=== PATIENT | female | born 1955 | race Caucasian/White ===

== ENCOUNTER → 2016-10-14 | Outpatient (CLI) | payer BC ==
--- NOTE | 2016-10-14 15:20 | CT ---
EXAMINATION TYPE: CT soft tissue neck w con DATE OF EXAM: 10/14/2016 1:56 PM COMPARISON: 02/25/2016 HISTORY: 61 year-old female right sided neck nodule TECHNIQUE: Contiguous axial scanning of the neck performed with IV Contrast, patient injected with 10 0 ml mL of Omnipaque 300. Coronal/sagittal reconstructions performed. CT DLP: 676 mGycm Automated exposure control for dose reduction was used. FINDINGS: Visualized intracranial structures show partially empty sella. Orbits and globes, paranasal sinuses, and mastoid air cells appear clear. Rightward nasal septal deviation. The nasopharynx is clear. The oropharynx shows mild bilateral palatine tonsillar hypertrophy similar to prior exam. The glottic and subglottic airway as well as of the tracheal column and visualized upp er lungs are clear. The epiglottis and prevertebral soft tissues are within normal limits. Thyroid and submandibular glands as well as the parotid glands appear clear. Nonenlarged upper cervical lymph nodes measure up to 7 mm. No cervical lymphadenopathy, suspicious ma ss, or abnormal fluid collection is identified. There is a palpable marker present along the right lateral mid neck. Underlying this is an asymmetrically enlarged external jugular vein. Some focal circumferential bulgi ng here is unchanged from 02/25/2016 and could represent a mild localized venous aneurysm or hypertrop hied valves. Maximal caliber is 1.2 cm. Bones: Degenerative disc disease C6/C7. IMPRESSION: 1. PALPABLE MARKER ALONG THE RIGHT LATERAL MID NECK AGAIN SHOWS A DILATED RIGHT EXTERNAL JUGULAR VEIN . IN THIS REGION, THERE IS FOCAL CIRCUMFERENTIAL BULGING WITH A CALIBER UP TO 1.2 CM, UNCHANGED FROM 02/25/2016. A MILD VENOUS ANEURYSM OR HYPERTROPHIED BOWELS ARE CONSIDERED. CONSIDER TARGETED ULTRASOUN D TO ASSESS FOR PROMINENT VALVES. 2. OTHERWISE, NO SUSPICIOUS NECK MASS.
== END | disposition home or self-care (01) ==
LOC: RADCTMAIN 13:18
PROVIDERS: ATTEND Internal Medicine
DX: R22.1 Localized swelling, mass and lump, neck (principal)
CPT/HCPCS: 70491; Q9967

== ENCOUNTER → 2017-03-16 | Outpatient (CLI) | payer BC ==
--- NOTE | 2017-03-16 11:39 | MM ---
Reason for exam: screening (asymptomatic). Last mammogram was performed 1 year ago. History: Patient is postmenopausal. Benign left mammotome panel of the left breast, December 03, 2011. Took estrogen for 10 years beginning at age 44. Physical Findings: A clinical breast exam by your physician is recommended on an annual basis and results should be correlated with mammographic findings. MG Screening Mammo w CAD Bilateral CC and MLO view(s) were taken. Prior study comparison: March 14, 2016, bilateral MG screening mammo w CAD. March 12, 2015, bilateral MG screening mammo w CAD. December 26, 2013, bilateral MG screening mammo w CAD. There are scattered fibroglandular densities. Previous mammotome biopsy in the left breast. Asymmetric breast tissue in the left upper outer quadrant, stable. There is no discrete abnormality. ASSESSMENT: Negative, BI-RAD 1 RECOMMENDATION: Routine screening mammogram of both breasts in 1 year.
== END | disposition home or self-care (01) ==
LOC: RADMAMWWP 07:40
PROVIDERS: ATTEND Internal Medicine
DX: Z12.31 Encounter for screening mammogram for malignant neoplasm of breast (principal)

== ENCOUNTER → 2017-04-25 | Outpatient (CLI) | payer BC ==
--- NOTE | 2017-04-25 11:33 | XR ---
EXAMINATION TYPE: XR chest 2V DATE OF EXAM: 04/25/2017 COMPARISON: Prior chest x-ray 03/19/2016 HISTORY: Pneumonia, retrocardiac infiltrate TECHNIQUE: Frontal and lateral views of the chest are obtained. FINDINGS: There is no focal air space opacity, pleural effusion, or pneumothorax seen. The cardiac silhouette size is within normal limits. The aorta is dense. The osseous structures are intact. IMPRESSION: No acute cardiopulmonary process.
== END | disposition home or self-care (01) ==
LOC: LABWHC1 09:28
PROVIDERS: ATTEND Internal Medicine
DX: J18.9 Pneumonia, unspecified organism (principal)
CPT/HCPCS: 71020

== ENCOUNTER → 2018-05-10 | Outpatient (CLI) | payer BC ==
--- NOTE | 2018-05-11 14:32 | MM ---
Reason for exam: screening (asymptomatic). Last mammogram was performed 1 year and 2 months ago. History: Patient is postmenopausal. Benign left mammotome panel of the left breast, December 03, 2011. Took estrogen for 10 years beginning at age 44. Physical Findings: A clinical breast exam by your physician is recommended on an annual basis and results should be correlated with mammographic findings. MG 3D Screening Mammo W/Cad Bilateral CC and MLO view(s) were taken. Prior study comparison: March 16, 2017, bilateral MG screening mammo w CAD. March 14, 2016, bilateral MG screening mammo w CAD. The breast tissue is heterogeneously dense. This may lower the sensitivity of mammography. There is no discrete abnormality. No significant changes when compared with prior studies. ASSESSMENT: Negative, BI-RAD 1 RECOMMENDATION: Routine screening mammogram of both breasts in 1 year.
== END ==
LOC: RADMAMWWP 11:11
PROVIDERS: ATTEND Internal Medicine
DX: Z12.31 Encounter for screening mammogram for malignant neoplasm of breast (principal)
CPT/HCPCS: 77063; 77067

== ENCOUNTER → 2019-07-07 | Outpatient (CLI) | payer BC, OTHER ==
--- NOTE | 2019-07-08 11:18 | MM ---
Reason for exam: screening (asymptomatic). Last mammogram was performed 1 year and 2 months ago. History: Patient is postmenopausal. Benign left mammotome panel of the left breast, December 03, 2011. Took estrogen for 10 years beginning at age 44. Physical Findings: A clinical breast exam by your physician is recommended on an annual basis and results should be correlated with mammographic findings. MG 3D Screening Mammo W/Cad Bilateral CC and MLO view(s) were taken. Prior study comparison: May 10, 2018, bilateral MG 3d screening mammo w/cad. March 16, 2017, bilateral MG screening mammo w CAD. The breast tissue is heterogeneously dense. This may lower the sensitivity of mammography. There are benign appearing round calcifications bilaterally. Previous mammotome biopsy in the left breast. Asymmetric breast tissue left central aspect. There is no discrete abnormality. ASSESSMENT: Benign, BI-RAD 2 RECOMMENDATION: Routine screening mammogram of both breasts in 1 year.
== END | disposition home or self-care (01) ==
LOC: RADMAMWWP 07:11
PROVIDERS: ATTEND Internal Medicine
DX: Z12.31 Encounter for screening mammogram for malignant neoplasm of breast (principal)
CPT/HCPCS: 77063; 77067

== ENCOUNTER → 2020-07-20 | Outpatient (CLI) | payer MEDICARE ==
--- NOTE | 2020-07-23 10:34 | MM ---
Reason for exam: screening (asymptomatic). Last mammogram was performed 1 year ago. History: Patient is postmenopausal. Benign left mammotome panel of the left breast, December 03, 2011. Took hormonal contraceptives for 5 years. Took estrogen for 10 years beginning at age 44. Physical Findings: A clinical breast exam by your physician is recommended on an annual basis and results should be correlated with mammographic findings. MG 3D Screening Mammo W/Cad Bilateral CC and MLO view(s) were taken. Prior study comparison: July 07, 2019, bilateral MG 3d screening mammo w/cad. May 10, 2018, bilateral MG 3d screening mammo w/cad. The breast tissue is heterogeneously dense. This may lower the sensitivity of mammography. There is no discrete abnormality. No significant changes when compared with prior studies. ASSESSMENT: Negative, BI-RAD 1 RECOMMENDATION: Routine screening mammogram of both breasts in 1 year.
== END | disposition home or self-care (01) ==
LOC: RADMAMWWP 09:37
PROVIDERS: ATTEND Internal Medicine
DX: Z12.31 Encounter for screening mammogram for malignant neoplasm of breast (principal)
CPT/HCPCS: 77063; 77067

== ENCOUNTER → 2021-07-22 | Outpatient (CLI) | payer MEDICARE ==
--- NOTE | 2021-07-23 11:30 | MM ---
Reason for exam: screening (asymptomatic). Last mammogram was performed 1 year ago. History: Patient is postmenopausal. Benign left mammotome panel of the left breast, December 03, 2011. Took hormonal contraceptives for 5 years. Took estrogen for 10 years beginning at age 44. Physical Findings: A clinical breast exam by your physician is recommended on an annual basis and results should be correlated with mammographic findings. MG 3D Screening Mammo W/Cad Bilateral CC and MLO view(s) were taken. XCCL view(s) were taken of the right breast. Prior study comparison: July 20, 2020, bilateral MG 3d screening mammo w/cad. July 07, 2019, bilateral MG 3d screening mammo w/cad. There are scattered fibroglandular densities. No significant changes when compared with prior studies. ASSESSMENT: Benign, BI-RAD 2 RECOMMENDATION: Routine screening mammogram of both breasts in 1 year.
== END | disposition home or self-care (01) ==
LOC: RADMAMWWP 15:31
PROVIDERS: ATTEND Internal Medicine
DX: Z12.31 Encounter for screening mammogram for malignant neoplasm of breast (principal)
CPT/HCPCS: 77063; 77067

== ENCOUNTER → 2022-04-25 | Outpatient (CLI) | payer MEDICARE ==
--- NOTE | 2022-04-25 13:32 | XR ---
EXAMINATION TYPE: XR cervical spine comp DATE OF EXAM: 04/25/2022 COMPARISON: NONE HISTORY: Pain TECHNIQUE: Four views are submitted. FINDINGS: The odontoid is intact. There are no compression deformities. The prevertebral soft tissue structur es are within normal limits. Multilevel facet arthropathy. There is degenerative change C5-6 and C6- C7. Foraminal encroachment C4-5 and C5-C6. IMPRESSION: 1. Multilevel degenerative disc disease and facet arthropathy with foraminal encroachment as discusse d above..
== END | disposition home or self-care (01) ==
LOC: RADXRMAIN 13:09
PROVIDERS: ATTEND Internal Medicine
DX: M47.812 Spondylosis without myelopathy or radiculopathy, cervical region (principal); M50.323 Other cervical disc degeneration at C6-C7 level
CPT/HCPCS: 72050

== ENCOUNTER 2022-05-01 12:24 | Emergency (ER) | payer MEDICARE ==
[2022-05-01 12:48] VITALS: RESP 18; TEMP 98.4
--- NOTE | 2022-05-01 13:44 | XR ---
EXAMINATION TYPE: XR chest 2V DATE OF EXAM: 05/01/2022 COMPARISON: 04/25/2017 TECHNIQUE: PA and lateral views submitted. HISTORY: Pain FINDINGS: The lungs are clear and there is no pneumothorax, pleural effusion, or focal pneumonia. Heart size normal with no overt failure. Biapical pleural thickening. Hypertrophic and degenerative change of th e spine. IMPRESSION: 1. No acute process.
[2022-05-01 13:53] LABS: ALT 23 U/L (4-34); AST 30 U/L (14-36); African American GFR (CKD) >90 (>60 ml/min/1.73 sqM); Albumin 4.2 g/dL (3.5-5.0); Alkaline Phosphatase 74 U/L (38-126); Anion Gap 6 mmol/L; Blood Urea Nitrogen 15 mg/dL (7-17); Calcium 9.2 mg/dL (8.4-10.2); Carbon Dioxide 31 mmol/L (22-30); Chloride 107 mmol/L (98-107); Glucose 90 mg/dL (74-99); INR 0.9 (<1.2); Magnesium 1.8 mg/dL (1.6-2.3); Non-African American GFR(CKD) 78 (>60 ml/min/1.73 sqM); Partial Thromboplastin Time 22.8 sec (22.0-30.0); Potassium 3.9 mmol/L (3.5-5.1); Sodium 144 mmol/L (137-145); Total Bilirubin 0.7 mg/dL (0.2-1.3)
[2022-05-01 13:56] LABS: Basophils # (A) 0.1 k/uL (0-0.2); Basophils % (A) 1 %; Eosinophils # (A) 0.2 k/uL (0-0.7); Eosinophils % (A) 2 %; HCT 41.3 % (34.0-46.0); HGB 13.8 gm/dL (11.4-16.0); Lymphocytes # (A) 1.7 k/uL (1.0-4.8); Lymphocytes % (A) 20 %; MCH 30.7 pg (25.0-35.0); MCHC 33.3 g/dL (31.0-37.0); MCV 92.1 fL (80.0-100.0); Mean Platelet Volume 8.4; Monocytes # (A) 0.4 k/uL (0-1.0); Monocytes % (A) 5 %; Neutrophils # (A) 5.7 k/uL (1.3-7.7); Neutrophils % (A) 68 %; Platelet Count 151 k/uL (150-450); RBC 4.49 m/uL (3.80-5.40); RDW 15.1 % (11.5-15.5); WBC 8.3 k/uL (3.8-10.6)
--- NOTE | 2022-05-01 13:58 | ED ---
Chest Pain HPI - General Chief Complaint: Chest Pain Stated Complaint: Chest pain Time Seen by Provider: 05/01/22 12:50 Source: patient, family Mode of arrival: wheelchair - History of Present Illness Initial Comments: 67-year-old female with past history of hypertension, hyperlipidemia presents to the emergency department from her doctor's office. States that one month ago mei gutiérrez was riding a lawnmower dragging something behind her using her right arm. She began having right shoulder and right-sided neck pain. She was seen her primary care office where they completed an x-ray. As of a few days ago the pain now starts radiating into the patient's anterior chest. Because of this they did recommend that she be evaluated for PE and [place]. Patient states that the pain is reproducible with movement.. No associated shortness of breath. No fevers, chills or cough. No previous history of pulmonary or cardiac issues. No lower externally swelling. Patient is an dominant. No other alleviating, Perceptin or modifying factors - Related Data Home Medications Medication Instructions Recorded Confirmed ALPRAZolam [Xanax] 0.25 mg PO TID PRN 05/01/22 05/01/22 Baclofen [Lioresal] 10 mg PO TID PRN 05/01/22 05/01/22 Bisoprolol-Hctz 10-6.25 mg [Ziac 1 tab PO DAILY 05/01/22 05/01/22 10-6.25 MG] Cholecalciferol [Vitamin D3 (125 125 mcg PO DAILY 05/01/22 05/01/22 Mcg = 5000 Iu)] Furosemide [Lasix] 20 mg PO DAILY 05/01/22 05/01/22 HYDROcodone/APAP 5-325MG [[place] 1 tab PO TID PRN 05/01/22 05/01/22 5-325] Indomethacin [Indocin] 25 mg PO TID PRN 05/01/22 05/01/22 Levothyroxine Sodium [Tirosint] 25 mcg PO DAILY 05/01/22 05/01/22 Multivitamins, Thera [Multivitamin 1 tab PO DAILY 05/01/22 05/01/22 (formulary)] Nystatin 100,000 Unit/gm Powd 1 applic TOPICAL BID PRN 05/01/22 05/01/22 [Mycostatin Powder] Nystatin 100,000Unit/gm Cream 1 applic TOPICAL BID PRN 05/01/22 05/01/22 [Mycostatin Cream] Omeprazole [PriLOSEC] 20 mg PO DAILY 05/01/22 05/01/22 Potassium Chloride ER [K-Dur 20] 20 meq PO DAILY 05/01/22 05/01/22 Simvastatin [Zocor] 10 mg PO HS 05/01/22 05/01/22 Triamcinolone 0.5% Cream [Kenalog 1 applic TOPICAL BID 05/01/22 05/01/22 0.5% Cream] allopurinoL [Zyloprim] 300 mg PO DAILY 05/01/22 05/01/22 Allergies Allergy/AdvReac Type Severity Reaction Status Date / Time No Known Allergies Allergy Verified 05/01/22 12:47 Review of Systems ROS Statement: Those systems with pertinent positive or pertinent negative responses have been documented in the HPI. ROS Other: All systems not noted in ROS Statement are negative. EKG Findings - EKG Comments: EKG Findings:: EKG demonstrates sinus bradycardia with rate of 58. WA interval 183. QRS 90. QTC of 432. No acute ST segment elevations or depressions concerning for ischemic changes Past Medical History Past Medical History: Hyperlipidemia, Hypertension History of Any Multi-Drug Resistant Organisms: MRSA Date of last positivie culture/infection: 08/22/20 MDRO Source:: Vaginal Past Surgical History: Hysterectomy, Orthopedic Surgery Past Psychological History: No Psychological Hx Reported Smoking Status: Current every day smoker Past Alcohol Use History: None Reported Past Drug Use History: None Reported General Exam General appearance: alert, in no apparent distress Head exam: Present: atraumatic, normocephalic, normal inspection Eye exam: Present: normal appearance, PERRL, EOMI. Absent: scleral icterus, conjunctival injection, periorbital swelling ENT exam: Present: normal exam, mucous membranes moist Neck exam: Present: tenderness (to palpation of right trapezius muscle, equal printed circuit board preassembler strength.). Absent: meningismus, lymphadenopathy Respiratory exam: Present: normal lung sounds bilaterally. Absent: respiratory distress, wheezes, rales, rhonchi, stridor Cardiovascular Exam: Present: regular rate, normal rhythm, normal heart sounds. Absent: systolic murmur, diastolic murmur, rubs, gallop, clicks GI/Abdominal exam: Present: soft, normal bowel sounds. Absent: distended, tenderness, guarding, rebound, rigid Extremities exam: Present: normal inspection, full ROM, normal capillary refill. Absent: tenderness, pedal edema, joint swelling, calf tenderness Back exam: Present: normal inspection Neurological exam: Present: alert, oriented X3, CN II-XII intact Psychiatric exam: Present: normal affect, normal mood Skin exam: Present: warm, dry, intact, normal color. Absent: rash Course Vital Signs 05/01/22 05/01/22 05/01/22 12:42 14:15 16:02 Temperature 98.4 F Pulse Rate 64 62 60 Respiratory 18 18 18 Rate Blood Pressure 138/77 130/81 132/81 O2 Sat by Pulse 98 96 96 Oximetry Chest Pain MDM - MDM Upon arrival patient's placed into hallway 10. Through history and physical exam is performed. IV access established laboratory studies were conducted. D- dimer is elevated at 0.77. Patient sent for a CT of her chest as well as a CT of her cervical spine. CT negative for DVT. Cervical spine demonstrates mild disc disease at C6 to C7. These results are discussed with the patient. She is satisfied with her evaluation. She will follow-up with for further treatment and management of her pain. Also recommended follow-up with the orthopedic office for her continued right shoulder pain. Instructed to return for any new or worsening symptoms. Patient discharged home in stable condition Disposition Clinical Impression: Shoulder pain Disposition: HOME SELF-CARE Condition: Stable Instructions (If sedation given, give patient instructions): Chest Pain (ED) Additional Instructions: Please call and make an appointment with Dr. Archer in 1 week. You may need further imaging of your shoulder. Return to the emergency room for any new or worsening symptoms Is patient prescribed a controlled substance at d/c from ED?: No Referrals: Tasneem Morley MD [Primary Care Provider] - 1-2 days Aristides Montiel DO [Doctor of Osteopathic Medicine] - 1-2 days Time of Disposition: 15:49
--- NOTE | 2022-05-01 15:23 | CT ---
EXAMINATION TYPE: CT chest angio for PE CT DLP: 794.9 mGycm, Automated exposure control for dose reduction was used. DATE OF EXAM: 05/01/2022 3:15 PM COMPARISON: Chest radiograph from same day. CLINICAL INDICATION:Female, 67 years old with history of elevated d-dimer; Elevated d-dimer, chest pa in TECHNIQUE/CONTRAST: CTA scan of the thorax is performed with IV Contrast, patient injected with 100 mL of Isovue 370, pul monary embolism protocol. MIP images are created and reviewed. FINDINGS: Pulmonary Artery: There is no evidence for a filling defect within the pulmonary vasculature to sugge st acute pulmonary embolism. The pulmonary artery is of normal size. Lungs/Pleura: No evidence of focal consolidation, pleural effusion or pneumothorax. Left lower lobe l inear scarring or atelectasis. Airway: Large airways are patent. Heart: Mild prominent size. No pericardial effusion. Mild coronary arterial calcifications. Vasculature: No evidence of aortic aneurysm. Mediastinum: No gross evidence of adenopathy. Musculoskeletal: No acute osseous abnormalities. No aggressive osseous lesion. Mild multilevel degene rative disc disease. Soft Tissues: Unremarkable. Lower neck: No significant findings. Upper Abdomen: Small hiatal hernia.. IMPRESSION: No evidence of pulmonary embolism or acute thoracic process.
--- NOTE | 2022-05-01 15:27 | CT ---
EXAMINATION TYPE: CT cervical spine wo con CT DLP: 836.8 mGycm, Automated exposure control for dose reduction was used. DATE OF EXAM: 05/01/2022 3:17 PM COMPARISON: CT 8 chest 05/01/2022, cervical spine radiograph 04/25/2022, CT soft tissue neck 10/14/2016 .. CLINICAL INDICATION:Female, 67 years old with history of pain; PHH, Neck, RT shoulder pain TECHNIQUE: Axial CT images from the skull base to the inferior aspect of T2 we obtained without intra venous contrast. Coronal and sagittal reformatted images were also reviewed. FINDINGS: Fracture: None. Osseous structures: Degenerative disc disease at C6-C7 with disc space narrowing, endplate sclerosis, and anterior osteophyte formation. Multilevel facet arthropathy. Vertebral alignment: Within normal limits. Spinal canal/Neural Foramina: Disc osteophyte complexes at C6-C7 with at least mild spinal canal sten osis. Facet joint uncovertebral joint arthropathy scattered throughout the cervical spine with varyin g degrees of neural foraminal stenosis. Neck soft tissues: Prevertebral soft tissues are within normal limits. Other: The airway is patent. The lung apices are clear. IMPRESSION: 1. No evidence of cervical spine fracture. 2. Mild degenerative disc disease at C6-C7.
[2022-05-01 16:03] VITALS: BP 132/81; PULSE 60
== END 2022-05-01 16:03 | disposition home or self-care (01) ==
LOC: EC 12:24
DX: M25.511 Pain in right shoulder (principal); E78.5 Hyperlipidemia, unspecified; I10 Essential (primary) hypertension; F17.200 Nicotine dependence, unspecified, uncomplicated; Z90.49 Acquired absence of other specified parts of digestive tract; Z79.84 Long term (current) use of oral hypoglycemic drugs; Z79.02 Long term (current) use of antithrombotics/antiplatelets; Z79.899 Other long term (current) drug therapy
CPT/HCPCS: 36415; 93005; 85379; 80053; 83735; 84484; 85025; 85610; 85730; 71046; 72125; 71275; 99285; Q9967

== ENCOUNTER → 2022-06-25 | Outpatient (CLI) | payer MEDICARE ==
--- NOTE | 2022-06-25 22:52 | MR ---
EXAMINATION TYPE: MR shoulder RT wo con DATE OF EXAM: 06/25/2022 COMPARISON: Outside right shoulder x-ray May 06, 2022 HISTORY: Right shoulder pain after strain, injury March 2022. TECHNIQUE: Multiplanar, multisequence imaging of the right shoulder is performed without contrast. FINDINGS: Rotator Cuff: Distal supraspinatus and infraspinatus tendons are intact. Rotator cuff muscle bulk is preserved. Acromioclavicular Joint: Moderate to severe narrowing with mild capsular hypertrophy and mild spurrin g. Glenohumeral Joint: Moderate size joint effusion. At least moderate narrowing is present. Bony projec tion from the inferior medial aspect of the humeral head subchondral cystic change superior osseous g lenoid, image 14. Labrum: The superior labrum shows increased signal consistent with degenerative tearing. Biceps Tendon: The long head of biceps is in normal location within bicipital groove. Bone marrow signal: Injuries of diminished T1 and increased T2 signal in the superior aspect of the h umeral head are identified. Other: No additional significant abnormality is appreciated. IMPRESSION: Degenerative changes right shoulder as detailed above with moderate to advanced findings at the glenohumeral joint noted as detailed above. No significant rotator cuff tear.
== END | disposition home or self-care (01) ==
LOC: RADMRIMAIN 12:38
PROVIDERS: ATTEND Orthopaedic Surgery
DX: M19.011 Primary osteoarthritis, right shoulder (principal); M25.411 Effusion, right shoulder

== ENCOUNTER → 2023-07-30 | Outpatient (CLI) | payer MEDICARE ==
--- NOTE | 2023-07-30 22:21 | MM ---
Reason for Exam: Screening (asymptomatic). Last screening mammogram was performed 12 month(s) ago. Patient History: Menarche at age 14. First Full-Term at age 19. Left ovary removed at age 44. Right ovary removed at age 44. Hysterectomy at age 44. Postmenopausal. Estrogen, starting at age 44 for 10 years. Patient used Hormonal Contraceptives for 5 years. 12/03/2011, Benign Core Biopsy on the left side. Risk Values: Yvette 5 year model risk: 1.3%. NCI Lifetime model risk: 4.3%. Prior Study Comparison: 07/20/2020 Bilateral Screening Mammogram, [facility]. 07/22/2021 Bilateral Screening Mammogram, [facility]. 07/28/2022 Bilateral MG 3D screening mammo w/cad, [facility]. Tissue Density: There are scattered fibroglandular densities. Findings: Analyzed By CAD. Unchanged global asymmetry left upper outer quadrant with a microclip related to prior biopsy. There is no suspicious group of microcalcifications or new suspicious mass in either breast. Overall Assessment: Benign, BI-RAD 2 Management: Screening Mammogram of both breasts in 1 year. . Patient should continue monthly self-breast exams. A clinical breast exam by your physician is recommended on an annual basis. This exam should not preclude additional follow-up of suspicious palpable abnormalities. Note on Yvette scores and lifetime risk: 1. A Yvette score greater than 3% is considered moderate risk. If this is the case, consider specialist referral to assess eligibility for a risk reducing agent. 2. If overall lifetime risk for the development of breast cancer is 20% or higher, the patient may qualify for future screening with alternating mammogram and breast MRI. Electronically signed and approved by: Libby Landa M.D. Radiologist
== END | disposition home or self-care (01) ==
LOC: RADMAMWWP 07:45
PROVIDERS: ATTEND Internal Medicine
DX: Z12.31 Encounter for screening mammogram for malignant neoplasm of breast (principal); Z78.0 Asymptomatic menopausal state; Z92.0 Personal history of contraception
CPT/HCPCS: 77063; 77067

== ENCOUNTER → 2023-11-12 | Outpatient (CLI) | payer MEDICARE ==
--- NOTE | 2023-11-15 21:17 | MR ---
EXAMINATION TYPE: MR knee RT wo con DATE OF EXAM: 11/12/2023 COMPARISON: Outside radiograph 10/30/2023 HISTORY: 68 year-old female M25.561, Right knee pain, S/P injury 3 mos ago. TECHNIQUE: Multiplanar, multisequence imaging of the right knee is performed without IV contrast. FINDINGS: The ACL, PCL, MCL are intact. Partial tear at the femoral attachment of the LCL proper. LCL complex otherwise intact. Small inner margin tear at the junction of the posterior horn and body of the lateral meniscus. Mild irregular cartilage loss along the anterior weightbearing aspect of the lateral compartment. Complex, predominantly oblique tear extending throughout the posterior horn and body of the medial me niscus. There is degenerative spurring in the medial compartment but with overall preserved cartilage volume. Severe degenerative change in the patellofemoral compartment with complete cartilage loss along the l ateral patellar and trochlear facets and [id number] articulation with subchondral cystic change. Sl ight lateral patellar translation. Marginal spurring. Moderate knee joint effusion likely reactive. 9 mm loose body in the suprapatellar pouch and posterio rly measuring 5 mm. Extensor mechanism is intact. Nonspecific subcutaneous soft tissue swelling. Normal popliteal artery anatomy and muscle bulk. No suspicious bone marrow replacement. IMPRESSION: 1. Grade 2 sprain femoral attachment of the LCL proper. 2. Complex, predominantly oblique tear extending throughout the posterior horn and body of the medial meniscus. 3. Small inner margin tear at the junction of the posterior horn and body of the lateral meniscus. 4. Severe, [id number] OA of the patellofemoral compartment especially involving the lateral patella r and trochlear facets. 5. Moderate knee joint effusion and a couple loose bodies measuring up to 9 mm.
== END | disposition home or self-care (01) ==
LOC: RADMRIMAIN 12:36
PROVIDERS: ATTEND Orthopaedic Surgery
DX: S83.281A Other tear of lateral meniscus, current injury, right knee, initial encounter (principal); M17.11 Unilateral primary osteoarthritis, right knee; M25.461 Effusion, right knee

== ENCOUNTER 2023-12-10 17:10 | Emergency (ER) | payer MEDICARE ==
[2023-12-10 19:00] LABS: ALT 24 U/L (4-34); AST 30 U/L (14-36); African American GFR (CKD) >90 (>60 ml/min/1.73 sqM); Alkaline Phosphatase 69 U/L (38-126); Anion Gap 6 mmol/L; Blood Urea Nitrogen 19 mg/dL (7-17); Calcium 9.8 mg/dL (8.4-10.2); Carbon Dioxide 27 mmol/L (22-30); Chloride 107 mmol/L (98-107); Glucose 90 mg/dL (74-99); Non-African American GFR(CKD) 85 (>60 ml/min/1.73 sqM); Potassium 4.2 mmol/L (3.5-5.1); Sodium 140 mmol/L (137-145); Total Bilirubin 0.6 mg/dL (0.2-1.3); Total Protein 6.9 g/dL (6.3-8.2)
[2023-12-10 19:06] LABS: Basophils % (A) 0 %; Eosinophils # (A) 0.3 k/uL (0-0.7); Eosinophils % (A) 4 %; HCT 42.5 % (34.0-46.0); HGB 14.2 gm/dL (11.4-16.0); Lymphocytes # (A) 1.8 k/uL (1.0-4.8); Lymphocytes % (A) 23 %; MCH 31.1 pg (25.0-35.0); MCHC 33.5 g/dL (31.0-37.0); MCV 92.8 fL (80.0-100.0); Mean Platelet Volume 8.6; Monocytes # (A) 0.5 k/uL (0-1.0); Monocytes % (A) 7 %; Neutrophils # (A) 4.9 k/uL (1.3-7.7); Neutrophils % (A) 64 %; Platelet Count 171 k/uL (150-450); RBC 4.58 m/uL (3.80-5.40); RDW 15.3 % (11.5-15.5); WBC 7.7 k/uL (3.8-10.6)
--- NOTE | 2023-12-10 19:31 | ED ---
Chest Pain HPI - General Time Seen by Provider: 12/10/23 19:09 - History of Present Illness Initial Comments: Patient is a 68-year-old woman who presents to have evaluation of left chest/shoulder pain that started this morning between 10 and 11 AM. The patient states that she noticed it after she lifted a laundry basket. She states it does not feel like she strained herself. The pain has been constant. Moderate intensity worse with movement. The pain is aching in character. She has not noted any associated symptoms, no dyspnea, diaphoresis, nausea, vomiting, palpitations, lightheadedness or syncope. MD Complaint: chest pain Onset/Timin -: hour(s) Onset: during rest Pain Location: left chest Pain Radiation: LUE Severity: moderate Quality: aching Consistency: constant Improves With: nothing Worsens With: movement Treatments Prior to Arrival: none - Related Data Home Medications Medication Instructions Recorded Confirmed ALPRAZolam [Xanax] 0.25 mg PO TID PRN 05/01/22 08/04/22 Bisoprolol-Hctz 10-6.25 mg [Ziac 1 tab PO DAILY 05/01/22 08/04/22 10-6.25 MG] Cholecalciferol [Vitamin D3 (125 125 mcg PO DAILY 05/01/22 08/04/22 Mcg = 5000 Iu)] Furosemide [Lasix] 20 mg PO DAILY 05/01/22 08/04/22 Indomethacin [Indocin] 25 mg PO TID PRN 05/01/22 08/04/22 Levothyroxine Sodium [Tirosint] 25 mcg PO DAILY 05/01/22 08/04/22 Multivitamins, Thera [Multivitamin 1 tab PO DAILY 05/01/22 08/04/22 (formulary)] Nystatin 100,000Unit/gm Cream 1 applic TOPICAL BID PRN 05/01/22 08/04/22 [Mycostatin Cream] Omeprazole [PriLOSEC] 20 mg PO DAILY 05/01/22 08/04/22 Potassium Chloride ER [K-Dur 20] 20 meq PO DAILY 05/01/22 08/04/22 Simvastatin [Zocor] 10 mg PO HS 05/01/22 08/04/22 Triamcinolone 0.5% Cream [Kenalog 1 applic TOPICAL BID PRN 05/01/22 08/04/22 0.5% Cream] allopurinoL [Zyloprim] 300 mg PO DAILY 05/01/22 08/04/22 Previous Rx's Medication Instructions Recorded HYDROcodone/APAP 7.5-325MG [[place] 1 each PO Q6HR PRN #21 tab 08/04/22 7.5] Allergies Allergy/AdvReac Type Severity Reaction Status Date / Time No Known Allergies Allergy Verified 12/10/23 19:57 Review of Systems ROS Statement: Those systems with pertinent positive or pertinent negative responses have been documented in the HPI. ROS Other: All systems not noted in ROS Statement are negative. Constitutional: Denies: fever, chills, weakness Respiratory: Denies: cough, dyspnea Cardiovascular: Reports: chest pain. Denies: palpitations, orthopnea, edema, syncope Gastrointestinal: Denies: abdominal pain, nausea, vomiting Genitourinary: Denies: dysuria, hematuria Musculoskeletal: Denies: back pain Skin: Denies: rash Neurological: Denies: headache, weakness, numbness, paresthesias EKG Findings - EKG Results: EKG: interpreted by ERMD, sinus rhythm (Rate 66 bpm), normal axis - Blocks, [place], Hypertrophy, ST Abn: QRS axis and voltage: low voltage (<0.5 MV total QRS and <1.0 MV in each precordial lead) Chamber hypertrophy or enlargement: only voltage criteria for left ventricular hypertrophy Past Medical History Past Medical History: Hyperlipidemia, Hypertension History of Any Multi-Drug Resistant Organisms: MRSA Date of last positivie culture/infection: 08/22/20 MDRO Source:: Vaginal Past Surgical History: Hysterectomy, Orthopedic Surgery Past Psychological History: No Psychological Hx Reported Smoking Status: Current every day smoker Past Alcohol Use History: None Reported General Exam General appearance: alert, in no apparent distress Head exam: Present: atraumatic, normocephalic Eye exam: Present: normal appearance. Absent: scleral icterus, conjunctival injection Neck exam: Present: normal inspection, full ROM Respiratory exam: Present: normal lung sounds bilaterally, chest wall tenderness. Absent: respiratory distress, wheezes, rales, rhonchi, stridor, accessory muscle use Cardiovascular Exam: Present: regular rate, normal rhythm, normal heart sounds. Absent: systolic murmur, diastolic murmur, rubs, gallop GI/Abdominal exam: Present: soft. Absent: distended, tenderness, guarding, rebound, rigid, mass Extremities exam: Present: normal inspection, normal capillary refill. Absent: pedal edema, calf tenderness Back exam: Present: normal inspection. Absent: CVA tenderness (R), CVA tenderness (L) Neurological exam: Present: alert. Absent: motor sensory deficit Skin exam: Present: warm, dry, intact, normal color. Absent: rash Course Vital Signs 12/10/23 12/10/23 12/10/23 19:55 20:03 22:30 Temperature 97 F L 98.3 F Pulse Rate 67 60 65 Respiratory 20 18 18 Rate Blood Pressure 149/86 144/69 141/80 O2 Sat by Pulse 96 96 95 Oximetry Chest Pain MDM - MDM The patient had chest x-ray that I interpreted as negative for acute infiltrate, pneumothorax, congestive heart failure Was pt. sent in by a medical professional or institution ([facility], [facility], urgent care, hospital, or fci...) When possible be specific @ -[No] Did you speak to anyone other than the patient for history (EMS, parent, family, police, friend...)? What history was obtained from this source @ -[No] Did you review nursing and triage notes (agree or disagree)? Why? @ -[I reviewed and agree with nursing and triage notes] Were old charts reviewed (outside hosp., previous admission, EMS record, old EKG, old radiological studies, urgent care reports/EKG's, fci records)? Report findings @ -[No old charts were reviewed] Differential Diagnosis (chest pain, altered mental status, abdominal pain women, abdominal pain men, vaginal bleeding, weakness, fever, dyspnea, syncope, headache, dizziness, GI bleed, back pain, seizure, CVA, palpatations, mental health, musculoskeletal)? @ -[Differential Chest Pain: Stable Angina, Unstable Angina, STEMI, NSTEMI Aortic Dissection, Pneumothorax, Musculoskeletal, Esophageal Spasm GERD, Cholecystitis, Pancreatitis, Zoster, this is not meant to be an all-inclusive list. EKG interpreted by me (3pts min.). @ -[I interpreted as above] X-rays interpreted by me (1pt min.). @ -[I interpreted as above CT interpreted by me (1pt min.). @ -[None done] U/S interpreted by me (1pt. min.). @ -[None done] What testing was considered but not performed or refused? (CT, X-rays, U/S, labs)? Why? @ -[None] What meds were considered but not given or refused? Why? @ -[None] Did you discuss the management of the patient with other professionals (professionals i.e. , PA, MEAT SMOKER, lab, RT, psych nurse, social media editor, hearing health technician, teacher, activities officer, nurse outreach case manager)? Give summary @ -[No] Was smoking cessation discussed for >3mins.? @ -[No] Was critical care preformed (if so, how long)? @ -[No] Were there social determinants of health that impacted care today? How? (Homelessness, low income, unemployed, alcoholism, drug addiction, transportation, low edu. Level, literacy, decrease access to med. care, [facility], rehab)? @ -[No] Was there de-escalation of care discussed even if they declined (Discuss DNR or withdrawal of care, Hospice)? DNR status @ -[No] What co-morbidities impacted this encounter? (DM, HTN, Smoking, COPD, CAD, Cancer, CVA, ARF, Chemo, Hep., AIDS, mental health diagnosis, sleep apnea, morbid obesity)? @ -[None] Was patient admitted / discharged? Hospital course, mention meds given and route, prescriptions, significant lab abnormalities, going to OR and other pertinent info. @ -[hospital course] Undiagnosed new problem with uncertain prognosis? @ -[No] Drug Therapy requiring intensive monitoring for toxicity (Heparin, Nitro, Insulin, Cardizem)? @ -[No] Were any procedures done? @ -[No] Diagnosis/symptom? @ -[Acute chest pain Shoulder strain Acute, or Chronic, or Acute on Chronic? @ -[Acute Uncomplicated (without systemic symptoms) or Complicated (systemic symptoms)? @ -[Uncomplicated Side effects of treatment? @ -[No] Exacerbation, Progression, or Severe Exacerbation? @ -[No] Poses a threat to life or bodily function? How? (Chest pain, [place], [place], pneumonia, PE, COPD, DKA, ARF, appy, cholecystitis, CVA, Diverticulitis, Homicidal, Suicidal, threat to staff... and all critical care pts) @ -[No] Disposition Clinical Impression: Chest pain, Shoulder strain Disposition: HOME SELF-CARE Condition: Good Instructions (If sedation given, give patient instructions): Chest Pain (ED) Is patient prescribed a controlled substance at d/c from ED?: No Referrals: Tasneem Morley MD [Primary Care Provider] - 1-2 days
[2023-12-10] MEDS: ASPIRIN 81 MG PO STA (20:00)
[2023-12-10 20:04] VITALS: RESP 18
--- NOTE | 2023-12-10 21:27 | XR ---
EXAMINATION TYPE: XR chest 2V DATE OF EXAM: 12/10/2023 7:34 PM CLINICAL INDICATION:Female, 68 years old with history of Chest Pain; [facility] COMPARISON: None TECHNIQUE: XR chest 2V. Frontal and lateral views of the chest.. FINDINGS: Lines/Tubes/Devices: No indwelling lines are seen. Heart/mediastinum: Heart size is normal. Mediastinum appears normal. Pulmonary vascularity: Not increased, Lungs/Pleura: There is no evidence of pleural effusion, focal consolidation, or pneumothorax. Musculoskeletal: No acute osseous abnormality demonstrated in the limits of the exam. Multilevel endp late spurring in the spine. Other findings: None. IMPRESSION: No acute cardiopulmonary abnormality.
[2023-12-10 21:43] LABS: INR 0.9 (<1.2); Prothrombin Time 10.4 sec (10.0-12.5)
[2023-12-10 21:54] LABS: Partial Thromboplastin Time 20.9 sec (22.0-30.0)
[2023-12-10 22:32] VITALS: BP 141/80; PULSE 65; TEMP 98.3
== END 2023-12-10 22:35 | disposition home or self-care (01) ==
LOC: EC 17:10
DX: S46.912A Strain of unspecified muscle, fascia and tendon at shoulder and upper arm level, left arm, initial encounter (principal); R07.89 Other chest pain; F17.200 Nicotine dependence, unspecified, uncomplicated; X58.XXXA Exposure to other specified factors, initial encounter
CPT/HCPCS: 36415; 71046; 80053; 84484; 85025; 85610; 85730; 93005; 99284

== ENCOUNTER 2023-12-23 08:11 | Day surgery (SDC) | payer MEDICARE ==
[2023-12-22 08:52] VITALS: BMI 41.5
--- NOTE | 2023-12-22 12:34 | HP ---
HISTORY AND PHYSICAL DATE OF SURGERY: 12/23/2023. HISTORY OF PRESENT ILLNESS: Rabia Watts is a 68-year-old patient seen with progressive right knee pain. We discussed options regarding treatment. She elected to proceed with right knee arthroscopy. Consent was obtained. PAST MEDICAL HISTORY: Hypertension, gastroesophageal reflux disease, hypothyroidism, gout. PAST SURGICAL HISTORY: Cataract surgery, hysterectomy, knee arthroscopy. DAILY MEDICATIONS: 1. Allopurinol. 2. Bisoprolol/hydrochlorothiazide. 3. Furosemide. 4. Omeprazole. 5. Simvastatin. 6. Levothyroxine. ALLERGIES: None. SOCIAL HISTORY: She denies tobacco use. PHYSICAL EVALUATION OF THE RIGHT KNEE: Range of motion is 0 to 130 degrees. Mild effusion. Tenderness, medial joint line. Positive medial Alena's. Ligaments stable. Hip rotation without pain. Her distal neurovascular exam is intact. IMAGING STUDIES: Right knee radiographs revealed moderate patellofemoral compartment osteoarthritis. MRI of right knee revealed medial meniscal tear, lateral meniscal tear, two loose bodies. IMPRESSION: 1. Internal derangement of right knee with medial and lateral meniscal tears. 2. Right knee loose bodies. 3. Hypertension. 4. Hyperlipidemia. 5. Hypothyroidism. PLAN: Right knee arthroscopy with partial medial/lateral meniscectomy. Remove loose bodies and debridement. MMODL / IJN: [id number] /
[~2023-12-23 08:11] MED LIST: HYDROmorphone 0.5 MG/0.5 ML SYRINGE IVP PRN
[2023-12-23] MEDS: IV FLUID CONTINUATION 1,000 ML IV ONE (08:40)
[2023-12-23 08:50] VITALS: RESP 16
[2023-12-23] MEDS: DEXAMETHASONE SOD PHOSPHATE 4 MG/ML 1 ML VIAL IV ONE (08:55)
[2023-12-23] MEDS: ONDANSETRON 4 MG/2 ML VIAL IVP ONE (08:55)
[2023-12-23] MEDS: LACTATED RINGERS 1,000 ML IV SCH (08:55)
[2023-12-23] MEDS: BUPIVACAINE (PF) 0.25% 30 ML VIAL MISCELLANE ONE ×2 (09:15→09:51)
[2023-12-23] MEDS ORDERED: PROPOFOL 10 MG/ML 20 ML VIAL IV ONE (09:19)
[2023-12-23] MEDS ORDERED: fentaNYL (PF) 50 MCG/ML 2 ML AMP ONE (09:19)
[2023-12-23] MEDS ORDERED: KETOROLAC 15 MG/ML 1 ML VIAL ONE (09:19)
[2023-12-23] MEDS ORDERED: LIDOCAINE 1% INJ 10MG/ML (20 ML MDV) ONE (09:19)
[2023-12-23] MEDS ORDERED: SUCCINYLCHOLINE CHLORIDE 200 MG/10 ML VIAL IV ONE (09:19)
[2023-12-23] MEDS ORDERED: MIDAZOLAM 2 MG/2 ML VIAL ONE (09:19)
--- NOTE | 2023-12-23 10:07 | P.OP ---
Date of Procedure: 12/23/23 Preoperative Diagnosis: Internal derangement right knee Postoperative Diagnosis: 1. Tear medial and lateral meniscus right knee 2. Grade IV chondromalacia femoral sulcus right knee 3. Reactive synovitis medial, lateral and suprapatellar compartments right knee Procedure(s) Performed: 1. Arthroscopic partial medial and lateral meniscectomy right knee 2. Arthroscopic microfracture femoral sulcus right knee 3. Arthroscopic partial synovectomy medial, lateral and suprapatellar compartments right knee Anesthesia: VINCENTA, local Surgeon: Aristides Montiel Estimated Blood Loss (ml): 8 Pathology: none sent Condition: stable Disposition: PACU Indications for Procedure: 68-year-old patient seen with progressive right knee pain. After having treatment options discussed, she elected to proceed with arthroscopy. Operative Findings: See description of procedure Description of Procedure: Patient was taken to the operative suite. Patient underwent a general anesthetic by the department of anesthesia. Patient was given preoperative antibiotics. The right lower extremity was placed in a well-padded arthroscopic leg phillip. The right leg was prepped and draped in the normal sterile orthopedic fashion. A lateral parapatellar and suprapatellar incision was made. Trochars were inserted. Arthroscopy was initiated. Suprapatellar pouch revealed diffuse thick reactive synovitis. The patellofemoral joint appeared to articular congruently. There was grade 2, show of the patella and grade IV chondromalacia of the femoral sulcus with an area of exposed bone. The scope was guided into the medial gutter. No loose bodies or plica were identified. The scope was then guided into the medial compartment. A medial parapatellar incision was made. Trocar inserted followed by probe. There was a complex tear involving the posterior horn and mid body of the medial meniscus. There were grade II chondromalacia changes medial femoral condyle without tears. There was thick reactive synovitis anteriorly. I performed a partial medial meniscectomy getting down to stable meniscal tissue. I performed a partial synovectomy decompressing the reactive synovitis anteriorly. The residual meniscus was probed and was found to be stable. There was good decompression of the synovitis. Scope and probe were then guided into the intercondylar notch. Cruciates were identified, probed and found to be stable. The scope and probe were then guided into lateral compartment. There was a radial tear mid bilateral meniscus. There were grade I chondromalacia changes lateral compartment without tears. There was some thick reactive synovitis anteriorly. I performed a partial lateral meniscectomy getting down to stable meniscal tissue. I performed a partial synovectomy decompressing the reactive synovitis. The residual meniscus was probed and was found to be stable. There was good decompression of the synovitis. The scope was in guided back into the suprapatellar compartment. I introduced a motorized shaver and performed a partial synovectomy. I noted good decompression of the synovitis. I now introduced a microfracture awl and I performed a microfracture to 2 separate areas of exposed bone in the femoral sulcus penetrating the bone at both areas with resultant bleeding at both microfracture sites. I now took 1 more look around the knee, no residual debris. Instruments were now removed from the join t. The joint was infiltrated with .25% Marcaine. Steri-Strips were applied to the portal sites. Sterile dressings were applied. The patient was placed into a SUNIL hose. No tourniquet was utilized. The patient was awakened, transferred to a bed and taken to recovery stable satisfactory condition.
[2023-12-23 10:09] VITALS: TEMP 98.2
[2023-12-23] MEDS: HYDROcodone/APAP 5-325MG 1 EACH TAB PO PRN (11:10)
[2023-12-23 11:31] VITALS: BP 144/70; PULSE 55
== END 2023-12-23 12:20 | disposition home or self-care (01) ==
LOC: OR 08:11
PROVIDERS: ATTEND Orthopaedic Surgery
DX: S83.281A Other tear of lateral meniscus, current injury, right knee, initial encounter (principal); S83.241A Other tear of medial meniscus, current injury, right knee, initial encounter; M23.41 Loose body in knee, right knee; M65.161 Other infective (teno)synovitis, right knee; M22.42 Chondromalacia patellae, left knee; E03.9 Hypothyroidism, unspecified; E78.5 Hyperlipidemia, unspecified; I10 Essential (primary) hypertension; K21.9 Gastro-esophageal reflux disease without esophagitis; M10.9 Gout, unspecified; Z90.710 Acquired absence of both cervix and uterus; Z79.890 Hormone replacement therapy; Z79.899 Other long term (current) drug therapy; X58.XXXA Exposure to other specified factors, initial encounter
CPT/HCPCS: 29879; 29880; J2250; J0330; J1100; J0690; J2405; J2001; J3010; J1885; J2704; J0665

== ENCOUNTER → 2024-02-19 | Outpatient (CLI) | payer MEDICARE ==
--- NOTE | 2024-02-19 13:57 | US ---
EXAMINATION TYPE: US venous doppler duplex LE RT DATE OF EXAM: 02/19/2024 1:38 PM COMPARISON: NONE CLINICAL INDICATION: Female, 68 years old with history of M79.661 PAIN IN R LEG R22.41 SWELLING, MASS , LUMP; red lump ant rt calf SIDE PERFORMED: Right TECHNIQUE: The lower extremity deep venous system is examined utilizing real time linear array sonog wilian with graded compression, doppler sonography and color-flow sonography. VESSELS IMAGED: Common Femoral Vein Deep Femoral Vein Greater Saphenous Vein * Femoral Vein Popliteal Vein Small Saphenous Vein * Proximal Calf Veins (* superficial vessels) Right Leg: Negative for DVT IMPRESSION: Grayscale, color doppler, spectral doppler imaging performed of the deep veins of the lo wer extremities. There is normal flow, compressibility, vascular waveforms.
--- NOTE | 2024-02-19 14:01 | US ---
EXAMINATION TYPE: US extremity nonvasc mass RT DATE OF EXAM: 02/19/2024 COMPARISON: NONE CLINICAL INDICATION: Female, 68 years old with history of M79.661 PAIN IN R LEG R22.41 SWELLING, MASS , LUMP; raised red lump x 1 month TECHNIQUE: several images taken at area on concern FINDINGS: there is a thrombosed varicose vein at patients area of concern with surrounding hyperemia IMPRESSION: Findings suggestive of a thrombosed varicose vein. Correlate for thrombophlebitis. A Yellow level critical message alert has been initiated for Aristides Montiel DO via the [employer] Critical Results System on 02/19/2024 1:58 PM. This message alert has been sent to Aristides watson DO via the preferences provided by the clinician for the receipt of Radiology Critical Findin gs. Message ID [id number].
== END | disposition home or self-care (01) ==
LOC: RADUSWWP 12:58
PROVIDERS: ATTEND Orthopaedic Surgery
DX: R22.41 Localized swelling, mass and lump, right lower limb (principal)